=== PATIENT | female | born 1925 | race Caucasian/White ===

== ENCOUNTER 2017-05-27 21:29 | Inpatient (IN) | payer MEDICARE ==
[~2017-05-27] VITALS: Ht 152.4 cm; Wt 60.0 kg
[~2017-05-27 21:29] MED LIST: ASPI-605 PO; ATOR40TA PO; CARB-93 PO; DOCU-25 PO; ISOS30TA6 PO; LEVE1000 PO; LEVO137T24 PO; LUBI24CA7 PO; ONDA4TAB5 PO; PRAM0.253 PO; PRIM50TA PO; RIVA1PAT3 TD; SERT50TA PO; SIME80TA15 PO; TYL2T PO; ZOLP5TAB2 PO
--- NOTE | 2017-05-27 21:30 | NUR ---
TO BED 5 AN 89 YO FEMALE BIBRA FOR "SYNCOPAL EPISODE WHILE AT EATING IN A RESTAURANT WITH SON; ORTHOSTATIC." PATIENT IS AAOX1-2, STARTED WITH CARDIAC AND VS MONITORING. NONDIAPHORETIC. SAFETY AND COMFORT MEASURES INITIATED. AWAITING FOR ER MD JACKSON.
[2017-05-27] MEDS ORDERED: IV NS 0.9% 1,000 ML BAG IV ONE (22:00)
--- NOTE | 2017-05-27 22:00 | NUR ---
started a saline lock on the lfa g20, blood drawn and sent to lab.
[2017-05-27 22:08] LABS: BASOPHILS # (AUTO) 0.1 /CMM (0.0-0.2); BASOPHILS % (AUTO) 0.5 % (0.0-2.0); EOSINOPHILS # (AUTO) 0.5 /CMM (0.0-0.7); EOSINOPHILS % (AUTO) 4.2 % (0.0-6.0); HEMATOCRIT 42 % (33-45); HEMOGLOBIN 13.4 g/dL (11.5-14.8); LYMPHOCYTES # (AUTO) 3.6 /CMM (0.8-4.8); LYMPHOCYTES % (AUTO) 33.5 % (20.0-44.0); MEAN CORPUSCULAR HEMOGLOBIN 30 PG (26.0-33.0); MEAN CORPUSCULAR HGB CONC 32 g/dl (31.0-36.0); MEAN CORPUSCULAR VOLUME 93 fL (82-100); MONOCYTES # (AUTO) 0.9 /CMM (0.1-1.30); MONOCYTES % (AUTO) 8.4 % (2.0-12.0); NEUTROPHILS # (AUTO) 5.8 /CMM (1.8-8.9); NEUTROPHILS % (AUTO) 53.4 % (43.0-81.0); PLATELET COUNT (AUTO) 259 /CMM (150-450); RDW COEFFICIENT OF VARIATION 17.2 (11.5-15.0); RED BLOOD CELL COUNT(AUTO) 4.51 MIL/uL (4.0-5.2); WHITE BLOOD COUNT (AUTO) 10.8 K/uL (4.3-11.0)
[2017-05-27 22:25] LABS: INR 0.92 (0.87-1.13); PROTHROMBIN TIME 9.8 SECS (9.5-12.7)
[2017-05-27 22:27] LABS: ALANINE AMINOTRANSFERASE 9 U/L (12-78); ALBUMIN 3.2 g/dL (3.4-5.0); ALKALINE PHOSPHATASE 85 U/L (46-116); ASPARTATE AMINOTRANSFERASE 15 U/L (15-37); BILIRUBIN,DIRECT 0.1 mg/dL (0.0-0.2); BILIRUBIN,TOTAL 0.2 mg/dL (0.2-1.0); CALCIUM, SERUM 8.2 mg/dL (8.5-10.1); CARBON DIOXIDE 28 mmol/L (21-32); CHLORIDE 104 mmol/L (98-107); GLUCOSE 117 mg/dL (74-106); POTASSIUM 4.5 mmol/L (3.5-5.1); SODIUM SERUM 139 mmol/L (136-145); TOTAL PROTEIN, SERUM 6.5 g/dL (6.4-8.2); UREA NITROGEN, BLOOD 14 mg/dL (7-18)
[2017-05-27 22:29] LABS: TROPONIN I < 0.017 ng/mL (0.00-0.056)
[2017-05-27] MEDS ORDERED: LEVO125T8 PO (22:37)
[2017-05-27] MEDS ORDERED: METO25TA6 PO (22:37)
--- NOTE | 2017-05-27 23:08 | NUR ---
CALLED DR JASON MARISCAL'S ANSWERING SERVICE, LEFT A VOICEMAIL.
--- NOTE | 2017-05-27 23:27 | NUR ---
PATIENT WILL BE ADMITTED INTO ROOM 326-1.
--- NOTE | 2017-05-27 23:53 | NUR ---
Report given to Brandi BARNARD for admission and jose r.
[2017-05-28] VITALS: BP 101/72
[2017-05-28] MEDS ORDERED: ZOLPIDEM TARTRATE 5 MG TABLET PO PRN
[2017-05-28] MEDS ORDERED: MAGNESIUM HYDROXIDE 30 ML UDC PO PRN
[2017-05-28] MEDS ORDERED: DOCUSATE SODIUM 100 MG CAPSULE PO PRN
[2017-05-28] MEDS ORDERED: SIMETHICONE 80 MG TAB.CHEW PO PRN
[2017-05-28] MEDS ORDERED: ENOXAPARIN SODIUM 30 MG/0.3 ML DISP.SYRIN SQ SCH
[2017-05-28] MEDS ORDERED: ACETAMINOPHEN 325 MG TABLET PO PRN ×2
[2017-05-28] MEDS ORDERED: MAG HYDROX/AL HYDROX/SIMETH 30 ML UDC PO PRN
[2017-05-28] MEDS ORDERED: Z GUARD REMEDY 2 OZ OINT TP PRN
[2017-05-28] MEDS ORDERED: ONDANSETRON HCL/PF 4 MG/2 ML VIAL IVP PRN
--- NOTE | 2017-05-28 | NUR ---
TELE LINESPERSON INITIAL NOTES ADMIT PT FROM ER VIA KAYCE ACCOMPANIED BY ER NURSE AND TECH WITH HER SON AT THE BEDSIDE. PT IS ALERT ORIENTED AND AWARE WHERE SHE AT. DENIES ANY PAIN OR ANY DISCOMFORT. SHE ONLY ASK AT THIS TIME, SOMETHING TO EAT AND DRINK. OFFERED SANDWICH ,CRACKERS PUDDING AND JUICE BUT SHE ONLY LIKED PUDDING AND APPLE JUICE. NO DENTURES AT THIS TIME BUT ABLE TO EAT WITHOUT ANY ASPIRATION NOTED. BREATHING EVEN AND NON-LABORED WITH O2 AT 2 LITERS VIA NC. SON ANSWERED ALL MY QUESTION BECAUSE HE'S THE ONE THAT TAKING CARE AT HOME. SKIN ASSESSMENT DONE NOTED DRYNESS SPECIALLY ON BOTH LOWER LEGS BUT PT REFUSED TO APPLY SOME LOTION OR SOME BARRIER. SLIGHT REDNESS ON BUTTOCKS AREA BUT NO OPEN WOUND NOTED. TELE SINUS RHYTHM HEART 69 PER MONITOR. KEPT HER WARM AND COMFORTABLE AT ALL TIMES. PLACE CALL LIGHT AT REACH. BED ALARM SET FOR PT SAFETY. WILL CONTINUE TO MONITOR.
--- NOTE | 2017-05-28 00:09 | NUR ---
Transferred to [facility] via als protocol, no incident noted. Endorsed care to Nurse Surekha for jose r.
[2017-05-28] MEDS ORDERED: ENOXAPARIN SODIUM 30 MG/0.3 ML DISP.SYRIN ONE (01:23)
[2017-05-28] MEDS: IV NS 0.9% 1,000 ML IV PRN ×2 (01:38→23:18)
--- NOTE | 2017-05-28 02:00 | NUR ---
UTILITY AIDE/NOTES ROUTINE MEDS GIVEN ORDERED. IVF NS AT 75ML/HR STARTED TOO. RESTING AT THIS TIME WITHOUT ANY ACUTE DISTRESS NOTED. WILL CONTINUE TO MONITOR.
[2017-05-28 04:00] VITALS: BP 117/66
[2017-05-28 05:28] VITALS: BP_SYST 117; BP_SYST 128; BP_DIAS 66; BP_DIAS 70
[2017-05-28 06:40] LABS: BASOPHILS # (AUTO) 0.1 /CMM (0.0-0.2); BASOPHILS % (AUTO) 0.7 % (0.0-2.0); EOSINOPHILS # (AUTO) 0.3 /CMM (0.0-0.7); EOSINOPHILS % (AUTO) 3.8 % (0.0-6.0); HEMATOCRIT 40 % (33-45); HEMOGLOBIN 12.9 g/dL (11.5-14.8); LYMPHOCYTES # (AUTO) 3.3 /CMM (0.8-4.8); LYMPHOCYTES % (AUTO) 40.5 % (20.0-44.0); MEAN CORPUSCULAR HEMOGLOBIN 30 PG (26.0-33.0); MEAN CORPUSCULAR HGB CONC 33 g/dl (31.0-36.0); MEAN CORPUSCULAR VOLUME 93 fL (82-100); MONOCYTES # (AUTO) 0.7 /CMM (0.1-1.30); MONOCYTES % (AUTO) 7.9 % (2.0-12.0); NEUTROPHILS # (AUTO) 3.9 /CMM (1.8-8.9); NEUTROPHILS % (AUTO) 47.1 % (43.0-81.0); PLATELET COUNT (AUTO) 219 /CMM (150-450); RDW COEFFICIENT OF VARIATION 17.4 (11.5-15.0); RED BLOOD CELL COUNT(AUTO) 4.26 MIL/uL (4.0-5.2); WHITE BLOOD COUNT (AUTO) 8.2 K/uL (4.3-11.0)
[2017-05-28 06:48] LABS: CALCIUM, SERUM 8.4 mg/dL (8.5-10.1); CARBON DIOXIDE 26 mmol/L (21-32); CHLORIDE 108 mmol/L (98-107); CREATININE 0.8 mg/dL (0.6-1.3); GLUCOSE 73 mg/dL (74-106); MAGNESIUM 1.6 mg/dL (1.8-2.4); POTASSIUM 4.7 mmol/L (3.5-5.1); SODIUM SERUM 141 mmol/L (136-145); UREA NITROGEN, BLOOD 12 mg/dL (7-18)
[2017-05-28 07:06] LABS: CHOLESTEROL 121 mg/dL (<200); HDL CHOLESTEROL 67 mg/dL (40-60); LDL 40 mg/dL (0-99); THYROID STIMULATING HORMONE 4.127 uIU/mL (0.358-3.74); TRIGLYCERIDES 70 mg/dL (30-150)
--- NOTE | 2017-05-28 07:17 | NUR ---
TELE SWITCHBOARD OPERATOR CLOSING NOTES PT AWAKE AND ALERT WATCHING TV AT THIS TIME. SHE STATED THAT SHE NEEDS TO BE TRANSFER TO [facility] , SPOKE TO HER THAT NEEDS TO WAIT FOR HER DR HERE IN THIS HOSPITAL AND WAIT FOR HER BLOOD TEST RESULT IF IS SAFE HER TO TRANSFER. PT ANSWERED ME "OK". IVF NS AT 75 ML/HR STILL INFUSING ON HER LEFT FOREARM , NO REDNESS NOTED. ALL DUE MEDS GIVEN AND SLEPT WELL LAST NIGHT. STABLE MARBELLA THE NIGHT, TELE SR PER MONITOR. ORTHOSTATIC BLLOD PRESSURE ALSO DONE AND WITHIN NORMAL LIMIT. ENDORSE TO AM NURSE FOR CONTINUITY OF CARE. BED ALARM SET FOR PT SAFETY.
[2017-05-28 08:00] VITALS: BP 123/56
[2017-05-28] MEDS ORDERED: METOPROLOL TARTRATE 25 MG TABLET PO SCH (09:00)
[2017-05-28] MEDS ORDERED: Medication Not On Formulary EA (Lubiprostone (Amitiza) 24 MCG) PO SCH (09:00)
[2017-05-28] MEDS: RIVASTIGMINE TARTRATE 4.6 MG PATCH.TD24 TD SCH (09:44)
[2017-05-28] MEDS: LEVETIRACETAM (250 MG) 250 MG TABLET PO SCH ×2 (09:44→22:11)
[2017-05-28] MEDS: ASPIRIN EC 81 MG TABLET.DR PO SCH (09:44)
[2017-05-28] MEDS: PRAMIPEXOLE DI-HCL 0.25 MG TABLET PO SCH ×3 (09:45→17:36)
[2017-05-28] MEDS: PANTOPRAZOLE 40 MG TABLET.DR PO SCH (09:45)
[2017-05-28] MEDS: CARBIDOPA/LEVODOPA 25/100 MG 1 UDTAB PO SCH ×3 (09:45→17:36)
[2017-05-28] MEDS: ISOSORBIDE MONONITRATE (30MG) 30 MG TAB.SR.24H PO SCH (09:45)
[2017-05-28] MEDS: LEVOTHYROXINE SODIUM 125 MCG TABLET PO SCH (09:45)
[2017-05-28] MEDS: Magnesium 1GM/D5W 100ML PREMIX 100 ML IV SCH ×2 (12:20→15:28)
[2017-05-28 12:26] LABS: APPEARANCE,URINE SL CLOUDY (CLEAR); BILIRUBIN,URINE NEGATIVE (NEGATIVE); BLOOD, URINE NEGATIVE Ery/uL (NEGATIVE); COLOR,URINE YELLOW (YELLOW); KETONES,URINE NEGATIVE (NEGATIVE); LEUKOCYTE ESTERASE ,URINE 1+ (NEGATIVE); NITRITE, URINE POSITIVE (NEGATIVE); PROTEIN,URINE NEGATIVE (NEGATIVE); UGLUCOSE NEGATIVE (NEGATIVE); UROBILINOGEN,URINE 0.2 EU/dL (0.2)
[2017-05-28 12:44] LABS: BACTERIA,URINE Moderate /HPF (None Seen); SQUAMOUS EPITHELIAL CELL,UR Few /HPF (None Seen); WBC,URINE 51-80 /HPF (0-3)
--- NOTE | 2017-05-28 13:42 | NUR ---
WOUND CARE CONSULT PATIENT SEEN AND SKIN INTEGRITY ASSESSMENT DONE. PLEASE SEE PRIMARY MONTESSORI TEACHER ASSESSMENT IN PCS FOR TODAY ALONG WITH ALL RECOMMENDATIONS. PATIENT WITH DAVID AT 17, INDEPENDENT WITH BED MOBILITY AT THIS TIME. RECOMMEND Z GUARD FOR PERINEAL/BUTTOCK AND WAN RECTAL REGIONS FOR MOISTURE MANAGMENT. WILL DEFER RIGHT BREAST LESION TO ACNP AT THIS TIME. ALL DISCUSSED WITH NURSING AT THE BEDSIDE. Addendum: 05/28/17 at 1344 by REYES BOYCE WNDNU Amended: Links added.
[2017-05-28] MEDS: BACITRACIN/POLYMYXIN B 15 GM TUBE TP SCH ×2 (15:12→17:49)
[2017-05-28 16:00] VITALS: BP 113/59
[2017-05-28] MEDS ORDERED: NITROFURANTOIN/NITROFURAN MAC 100 MG CAPSULE PO SCH (16:00)
[2017-05-28] MEDS: CEPHALEXIN MONOHYDRATE 250 MG CAPSULE PO SCH ×2 (17:49→23:18)
--- NOTE | 2017-05-28 17:52 | NUR ---
RN Notes Seen and examined by Dr Yi regarding the plan fro US guided needle biopsy of the right breast mass and said couldn't get hold of the son. Per patient, consent will be signed by her son. Will endorse [facility] nurse for follow up
--- NOTE | 2017-05-28 18:23 | NUR ---
RN Sachi Spoke with Son Rainer and informed him about the recommendation to do US guided needle biopsy as explained By Dr Yi, and verbalized agreeing to the procedure, consent was given and co verified through phone by AKIL Wu.
--- NOTE | 2017-05-28 18:25 | NUR ---
RN Note Resting well with no complain at this time. Needs anticipated. No untoward symptom noted. Will endorse to warehouse shift supervisor nurse for the continuity of care.
--- NOTE | 2017-05-28 19:26 | NUR ---
RN Notes Endorsed to night club manager nurse to inform Primary doctor to call Dr Meehan regarding use of Amitiza per son's request. Per Pharmacist Pamela, its part of the med to cont and to ask son to bring it. Rainer was upset that Amitiza was never taken by patient.
--- NOTE | 2017-05-28 19:30 | NUR ---
RN Notes Endorsed that per son's request, he wants to be around for ultrasound guided needle biopsy
--- NOTE | 2017-05-28 19:30 | NUR ---
RN NOTES RECEIVED PT. AWAKE ON BED, A/OX3. SR ON TELE MONITOR , HR-70, POST PRODUCTION ASSISTANT DOING THE ULTRASOUND, IV FLUID RUNNING @ 75ML/HR, DENIES PAIN, NO SOB, CALL LIGHT WITHIN REACH, SIDERAILS UPX2, CONTINUE TO MONITOR
[2017-05-28 20:00] VITALS: BP 118/54
[2017-05-28] MEDS: ENOXAPARIN SODIUM 30 MG/0.3 ML DISP.SYRIN SQ SCH (21:00)
[2017-05-28] MEDS: PRIMIDONE 50 MG TABLET PO SCH (22:10)
[2017-05-28] MEDS: SERTRALINE HCL 25 MG TABLET PO SCH (22:10)
[2017-05-28] MEDS: ATORVASTATIN 40 MG TABLET PO SCH (22:10)
--- NOTE | 2017-05-28 22:10 | NUR ---
RN NOTES SPOKE TO JEROMY ARMANDO-JOCELYN AND INFORMED HIM THAT PT IS GOING TO HAVE BIOPSY TOMORROW, JEROMY ARMANDO, ORDEREDTO HOLD THE LOVENOX FOR CHELSEA, CARLOS NOTED AND CARRIED OUT
--- NOTE | 2017-05-28 23:00 | NUR ---
RN NOTES PT. SON CALLED AND WAS SO RUDE ON THE PHONE, HE WAS SCREAMING TO THE POWER PLANT OPERATOR WELL TO THE CHARGE NURSE.. SPOKE TO THE SON AND PT. SON WAS INSISTING THAT HE'S MOM WILL BE DISCHARGE TOMORROW.. I EXPLAINED TO THE SON THAT THERE'S NO DISCHARGE ORDER YET SO WERE GOING TO TALK TO THE PRIMARY DOCTOR BUT THE SON DOESN'T LISTEN, HE KEEP ON INSISTING DR. MARISCAL WHICH IS THERE PRIMARY DOCTOR OUTSIDE TOLD HIM THAT IT'S GOING TO BE DISCHARGE TOMORROW.. THE MORE I EXPLAINED TO THE PT. SON THAT WERE GOING TO RELAY THE MESSAGE TO THE DOCTOR THE MORE HE SCREAMED ON THE PHONE
--- NOTE | 2017-05-28 23:30 | NUR ---
RN NOTES PT ASKED FOR PUDDING FO SNACK- GIVEN
[2017-05-29] VITALS (8 sets, daily range): BP systolic 97–125; BP diastolic 47–73
--- NOTE | 2017-05-29 04:00 | NUR ---
RN NOTES PT. SON CALLED AGAIN . WE INFORMED HIM THAT PT IS SLEEPING. PT SON INSIST AGAIN THAT HE'S MOM NEEDS TO BE DISCHARGE TODAY. I EXPLAINED HIM THAT WERE GOING TO TALK TO THE DOCTOR.. THE PT'S SON INSISTED AGAIN, AND WAS SCREAMING AGAIN ON THE PHONE, HE DOESN'T WANT TO LISTEN TO OUR EXPLANATION
[2017-05-29] MEDS: CEPHALEXIN MONOHYDRATE 250 MG CAPSULE PO SCH ×4 (06:07→23:54)
--- NOTE | 2017-05-29 06:10 | NUR ---
RN NOTES PT. SON CALLED AGAIN AND WAS RUDE SO RUDE ON THE PHONE. HE WAS SCREAMING AGAIN AND KEEP ON INSISTING ABOUT THE DISCHARGE OF HIS MOM. WE TRIED TO EXPLAINED AGAIN ABOUT THE DISCHARGE ORDER BUT THE SON DOESN'T WANT TO LISTEN
--- NOTE | 2017-05-29 06:42 | NUR ---
RN NOTES PT. IS AWAKE, MORNING CARE RENDERED, DENIES PAIN, NO SOB, IV LINE PATENT NO REDNESS OR SWOLLEN,PT. NEEDS ATTENDED. ENDORSED TO DAYSHIFT NURSE FOR CONTINUITY OF CARE
--- NOTE | 2017-05-29 07:10 | NUR ---
STAFF MECHANICAL ENGINEER OPENING NOTES RECEIVED PT. FROM NIGHTSHIFT NURSE IN STABLE CONDITION. PT IS A/O X3 WITH PERIODS OF CONFUSION. NO SOB OR SIGNS OF DISTRESS NOTED. BREATHING IS EVEN AND UNLABORED. PT. IS SINUS RHYTHM ON THE TELE MONITOR. PT. DENIES ANY DIZZINESS OR PAIN AT THIS TIME. SCD ARE OFF PER PT'S REQUEST ACCORDING TO THE NIGHTSHIFT NURSE. PT. CONSENTS TO PUTTING THEM ON LATER IN THE MORNING. IV PRESENT ON LEFT FA 20G INFUSING NS @75ML/HR. IV IS PATENT AND INTACT. NO REDNESS OR SIGNS OF INFILTRATION NOTED. PT. IS TOLERATING INFUSION WELL. BED IN LOW LOCKED POSITION, SIDE RAILS UP X3, CALL LIGHT WITHIN REACH. WILL CONTINUE TO MONITOR.
[2017-05-29] MEDS: ASPIRIN EC 81 MG TABLET.DR PO SCH (08:11)
[2017-05-29] MEDS: RIVASTIGMINE TARTRATE 4.6 MG PATCH.TD24 TD SCH (08:12)
[2017-05-29] MEDS: ISOSORBIDE MONONITRATE (30MG) 30 MG TAB.SR.24H PO SCH (08:13)
[2017-05-29] MEDS: LEVOTHYROXINE SODIUM 125 MCG TABLET PO SCH (08:13)
[2017-05-29] MEDS: LEVETIRACETAM (250 MG) 250 MG TABLET PO SCH ×2 (08:13→21:48)
[2017-05-29] MEDS: PANTOPRAZOLE 40 MG TABLET.DR PO SCH (08:13)
[2017-05-29] MEDS: BACITRACIN/POLYMYXIN B 15 GM TUBE TP SCH ×2 (08:14→17:05)
[2017-05-29] MEDS: CARBIDOPA/LEVODOPA 25/100 MG 1 UDTAB PO SCH ×3 (08:15→17:04)
[2017-05-29] MEDS: PRAMIPEXOLE DI-HCL 0.25 MG TABLET PO SCH ×3 (08:15→17:04)
[2017-05-29 09:19] LABS: CA 27.29 12.7 U/mL (0.0-38.6)
[2017-05-29] MEDS: IV NS 0.9% 1,000 ML IV PRN ×2 (10:59→23:57)
--- NOTE | 2017-05-29 11:41 | NUR ---
SCREEN OPERATOR NOTES PT. IS REFUSING DVT PUMPS AT THIS TIME.
--- NOTE | 2017-05-29 13:10 | NUR ---
REGISTRATION REPRESENTATIVE NOTES STROKE EDUCATION WAS ATTEMPTED, HOWEVER PT IS REFUSING. PT STATES "I DON'T NEED THAT RIGHT NIGHT". THE STROKE PAMPHLET WAS LEFT BY HER BEDSIDE. MULTIPLE ATTEMPTS HAVE BEEN MADE TO EDUCATE PT. WILL REATTEMPT LATER IN THE DAY IF PT. PERMITS
--- NOTE | 2017-05-29 14:33 | NUR ---
TEXTED DR. AU FOR MRI APPROVAL.
--- NOTE | 2017-05-29 15:02 | NUR ---
TAPE KELLER OPERATOR NOTES MRI CHECKLIST AND CONSENT FOR CONTRAST WERE SIGNED BY PT'S SON. PT. CONSENTED TO SON SIGNING FOR HER
--- NOTE | 2017-05-29 18:28 | NUR ---
LEGAL SECRETARY RECEPTIONIST CLOSING NOTES PT. REMAINS STABLE. NO ACUTE CHANGES IN CONDITION DURING SHIFT. ALL NEEDS WERE ANTICIPATED FOR AND MET DURING SHIFT. ALL ORDERS CARRIED OUT ACCORDINGLY. [facility] CALLED TO CALL THAT PT. IS MRSA POSITIVE OF THE NARES. CONTACT ISOLATION OBSERVED. ALL SAFETY MEASURES REMAIN IN PLACE. PT. REMAINS SINUS RHYTHM THROUGHOUT SHIFT. HR VARIED FROM 60S-80S. VITAL SIGNS REMAINED STABLE. WILL ENDORSE TO NIGHTSHIFT NURSE FOR MATTEO
--- NOTE | 2017-05-29 19:30 | NUR ---
RN NOTES RECEIVED PT AWAKE ON BED, SR ON TELE MONITOR, HR-76, IV FLUID RUNNING NS @ 75ML/HR, CALL LIGHT WITHIN REACH, SIDERAILS UPX2 CONTINUE TO MONITOR
[2017-05-29] MEDS: PRIMIDONE 50 MG TABLET PO SCH (21:48)
[2017-05-29] MEDS: ATORVASTATIN 40 MG TABLET PO SCH (21:48)
[2017-05-29] MEDS: ENOXAPARIN SODIUM 30 MG/0.3 ML DISP.SYRIN SQ SCH (21:48)
[2017-05-29] MEDS: SERTRALINE HCL 25 MG TABLET PO SCH (21:48)
--- NOTE | 2017-05-29 22:00 | NUR ---
RN NOTES EVENING CARE RENDERED
[2017-05-30] VITALS: BP 118/56
[2017-05-30 04:00] VITALS: BP 116/66
[2017-05-30] MEDS: CEPHALEXIN MONOHYDRATE 250 MG CAPSULE PO SCH ×2 (05:23→12:14)
--- NOTE | 2017-05-30 07:00 | NUR ---
RN NOTES AWAKE, MORNING CARE RENDERED, IV LINE PATENT NO REDNESS, OR SWOLLEN, PT NEEDS ATTENDED
--- NOTE | 2017-05-30 07:05 | NUR ---
PURCHASING MANAGER OPENING NOTES RECEIVED PT. FROM NIGHTSHIFT NURSE IN STABLE CONDITION. PT IS A/O X3 WITH PERIODS OF CONFUSION. NO SOB OR SIGNS OF DISTRESS NOTED. BREATHING IS EVEN AND UNLABORED. PT. IS SINUS RHYTHM ON THE TELE MONITOR. PT. DENIES ANY DIZZINESS OR PAIN AT THIS TIME. IV PRESENT ON LEFT FA 20G INFUSING NS @75ML/HR. IV IS PATENT AND INTACT. NO REDNESS OR SIGNS OF INFILTRATION NOTED. PT. IS TOLERATING INFUSION WELL. BED IN LOW LOCKED POSITION, SIDE RAILS UP X3, CALL LIGHT WITHIN REACH. WILL CONTINUE TO MONITOR.
[2017-05-30 07:14] VITALS: BP 134/53
[2017-05-30 08:00] VITALS: BP 136/58
[2017-05-30] MEDS: RIVASTIGMINE TARTRATE 4.6 MG PATCH.TD24 TD SCH (08:24)
[2017-05-30] MEDS: LEVETIRACETAM (250 MG) 250 MG TABLET PO SCH (08:24)
[2017-05-30] MEDS: ISOSORBIDE MONONITRATE (30MG) 30 MG TAB.SR.24H PO SCH (08:25)
[2017-05-30] MEDS: PRAMIPEXOLE DI-HCL 0.25 MG TABLET PO SCH ×2 (08:25→12:14)
[2017-05-30] MEDS: CARBIDOPA/LEVODOPA 25/100 MG 1 UDTAB PO SCH ×2 (08:26→12:14)
[2017-05-30] MEDS: LEVOTHYROXINE SODIUM 125 MCG TABLET PO SCH (08:26)
[2017-05-30] MEDS: PANTOPRAZOLE 40 MG TABLET.DR PO SCH (08:26)
[2017-05-30] MEDS: ASPIRIN EC 81 MG TABLET.DR PO SCH (08:26)
[2017-05-30] MEDS: BACITRACIN/POLYMYXIN B 15 GM TUBE TP SCH (08:27)
--- NOTE | 2017-05-30 09:38 | NUR ---
GLASS BLOWER NOTES STROKE TEACHING WAS ATTEMPTED. PT. REFUSES TEACHING AT THIS TIME.
--- NOTE | 2017-05-30 10:44 | NUR ---
SHEET METAL DUCT INSTALLER APPRENTICE NOTES PT. TAKEN DOWN FOR MRI OF BRAIN
[2017-05-30 11:12] LABS: CANCER AG, 15-3 18.8 U/mL (0.0-25.0); CARCINOEMBRYONIC AG (CEA) 8.8 ng/mL (0.0-4.7)
--- NOTE | 2017-05-30 11:40 | NUR ---
AGRICULTURAL SERVICES DIRECTOR NOTES PT. BACK FROM MRI IN STABLE CONDITION
[2017-05-30 12:00] VITALS: BP 129/61
[2017-05-30] MEDS ORDERED: MEROPENEM 500 MG in IV NS 0.9% 50 ML IV SCH (12:00)
[2017-05-30] MEDS ORDERED: FEE PK DOSING 1 MIN EA MC ONE (13:00)
[2017-05-30] MEDS ORDERED: GADOVERSETAMIDE 2.5 MMOL/5 ML VIAL IJ ONE (13:01)
[2017-05-30] MEDS ORDERED: BACI28.33 TP (13:13)
[2017-05-30] MEDS ORDERED: MERO500V IV (13:13)
[2017-05-30] MEDS ORDERED: CEPH250C PO (13:13)
--- NOTE | 2017-05-30 14:55 | NUR ---
TAILOR FITTERBENCH HAND MACHINE NOTES PT. WAS DISCHARGE TO [facility] IN STABLE CONDITION. REPORT WAS GIVEN TO JAMES WHO WAS TAKING OVER FOR THE NURSING STUDENT LIFE DEAN. THE FACILITY WAS TOLD THAT THE PT. IS MRSA POSITIVE OF THE NARES AND ALSO FOUND POSITIVE OF [place] OF THE URINE AND STATED THAT THEY HAVE AN ISOLATION BED AVAILABLE. DISCHARGE INSTRUCTIONS WERE DISCUSSED WITH BOTH THE PATIENT AND HER SON DAVID IN DETAIL. THEY BOTH EXPRESSED UNDERSTANDING OF DISCHARGE INSTRUCTIONS. ALL DISCHARGE PAPERWORK WAS SIGNED BY THE PT'S SON DAVID WITH HER CONSENT. BELONGING FORM WAS ALSO SIGNED BY DAVID. PT'S SON ALSO ASKED THAT PT GO TO THE FACILITY WITH HER CURRENT IV SHE WILL BE CONTINUE ANTIBIOTICS THERE. FACILITY WAS MADE AWARE AND APPROVED. PT'S CD WAS SENT WITH THE AMBULANCE STAFF TO PROVIDE TO THE FACILITY OF ALL HER IMAGING RESULTS. MEDICATION RECONCILIATION WAS ELECTRONICALLY DONE BY GRETA. ALL NEEDS WERE MET DURING SHIFT AND ORDERS CARRIED OUT ACCORDINGLY. PT. WAS SAFELY TRANSFERRED FROM [facility] TO [facility] AND LEFT THE HOSPITAL VIA AMBULANCE TRANSPORT IN STABLE CONDITION.
== END 2017-05-30 15:00 | DRG 73 ==
LOC: ER 21:30 → TELE 23:34
PROVIDERS: ADMIT Nurse Practitioner Acute Care; ATTEND Nurse Practitioner Acute Care
DX: G90.8 Other disorders of autonomic nervous system (principal); G93.40 Encephalopathy, unspecified; G20 Parkinson's disease; N39.0 Urinary tract infection, site not specified; C50.911 Malignant neoplasm of unspecified site of right female breast; B96.89 Other specified bacterial agents as the cause of diseases classified elsewhere; I10 Essential (primary) hypertension; F02.80 Dementia in other diseases classified elsewhere, unspecified severity, without behavioral disturbance, psychotic disturbance, mood disturbance, and anxiety; E78.5 Hyperlipidemia, unspecified; E03.9 Hypothyroidism, unspecified; F32.9 Major depressive disorder, single episode, unspecified; Z85.038 Personal history of other malignant neoplasm of large intestine; Z86.73 Personal history of transient ischemic attack (TIA), and cerebral infarction without residual deficits; K46.9 Unspecified abdominal hernia without obstruction or gangrene; G47.00 Insomnia, unspecified; I25.10 Atherosclerotic heart disease of native coronary artery without angina pectoris; K58.9 Irritable bowel syndrome, unspecified; G40.909 Epilepsy, unspecified, not intractable, without status epilepticus; R55 Syncope and collapse
CPT/HCPCS: 36415; 70450-TC; 70553-TC; 71010-TC; 76642-TC; 80048-TC; 80061-TC; 80076-TC; 81000-TC; 82378; 82962-TC; 83735-TC; 84100-TC; 84443-TC; 84484-TC; 85025-TC; 85730-TC; 86300; 87081-TC; 87086-TC; 87186-TC; 93307-TC; 95819-TC; A4216; A4606; A9579; J1650; J2185; J3475; J7030; Z7610